=== PATIENT | female | born 1960 | race Caucasian/White ===

== ENCOUNTER 2016-08-21 14:20 | Emergency (ER) | payer MEDICARE, OTHER ==
[~2016-08-21 14:20] MED LIST: BACDS PO; CRESTOR40 MG PO; EFFEXOR100 MG PO; GLUCOPHAGE1000 MG PO; GLUCOTRO10 PO; IBU800 PO; KLONO1 PO; LANTUSCART SC; LEVOTHYROXIN137 MCG PO; NEUR300 PO; NEUR800 PO; PAXIL30 MG PO; PRAVACHOL40 MG PO; PRIN5 PO; REM15 PO; SEROQUEL50 MG PO; TRESIBA FL100 UNIT/1 SQ; ULTRAM50 PO; ZOL100 PO
[2016-08-21 14:32] LABS: BASOPHILS 0.2 %; BASOPHILS ABSOLUTE 0.01 10/3/uL (0.0-0.16); EOSINOPHILS 1.3 %; EOSINOPHILS ABSOLUTE 0.08 10/3/uL (0.0-0.53); ER CBC TAT 0 Hrs 07 Mins; HEMATOCRIT 36.4 % (36.0-48.0); HEMOGLOBIN 12.2 g/dL (12.0-16.0); LYMPHOCYTES 38.4 %; LYMPHOCYTES ABSOLUTE 2.28 10/3/uL (0.67-4.30); MANUAL DIFF NO %; MEAN CORPUS HGB CONC 33.5 g/dL (32.0-36.0); MEAN CORPUSCULAR HEMOGLOB 29.8 pg (26.0-34.0); MEAN PLATELET VOLUME 10.6 fL (9.2-13.0); MONOCYTES ABSOLUTE 0.65 10/3/uL (0.21-1.20); NEUTROPHILS 49.1 %; NEUTROPHILS ABSOLUTE 2.91 10/3/uL (2.02-8.40); PLATELET COUNT 142 10/3/uL (150-400); RBC DISTRIBUTION WIDTH 14.5 % (12.0-16.0); RED CELL COUNT 4.09 10/6/uL (4.0-5.6); WHITE BLOOD CELLS 5.9 10/3/uL (4.5-10.5)
[2016-08-21 14:46] LABS: A/G RATIO 0.7 (0.7-1.9); CHLORIDE, SERUM 101 MMOL/L (96-112); CO2 (CARBON DIOXIDE) 26 MMOL/L (24-34); GFR AFRICAN AMERICAN 97 ML/MIN (>=60); GFR NON AFRICAN AMERICAN 84 ML/MIN (>=60); GLOBULIN 4.4 G/DL (2.5-4.1); GLUCOSE, SERUM 304 MG/DL (60-99); SGOT(AST) 42 U/L (5-40); SGPT(ALT) 40 U/L (5-65); SODIUM, SERUM 139 MMOL/L (135-148); TOTAL PROTEIN 7.4 G/DL (6.0-8.5)
[2016-08-21 14:47] LABS: ALKALINE PHOSPHATASE 155 U/L (45-117); BUN (BLOOD UREA NITROGEN) 9 MG/DL (6-23); CALCIUM, SERUM 8.5 MG/DL (8.5-10.4); TOTAL BILIRUBIN 1.5 MG/DL (0-1.2)
[2016-08-21 14:58] LABS: POTASSIUM, SERUM 2.9 MMOL/L (3.5-5.3)
[2016-08-21 15:31] LABS: ASCORBIC ACID (UR NOT ORDER) NEG (NEG); BILIRUBIN, URINE NEGATIVE (NEG); ER URINALYSIS TAT 0 Hrs 07 Mins; KETONE, URINE NEGATIVE (NEG); LEUKOCYTE ESTERASE(NOT OR NEG (NEG); NITRITE (URINE) NEG (NEG); WBC (NOT ORDERED) (RFLEX) 1 (0-5)
[2016-08-21 15:34] LABS: ACETONE NEG
[2017-01-20] MEDS ORDERED: SYNTHROID300 MCG PO (10:50)
[2017-01-20] MEDS ORDERED: NOVOPEN SC (10:51)
[2017-01-20] MEDS ORDERED: [UNRECOGNIZED DRUG - OTHER] PO (10:54)
== END 2016-08-21 16:40 | disposition home or self-care (01) ==
LOC: ER 14:20
PROVIDERS: Physician Assistant
DX: L03.811 Cellulitis of head [any part, except face] (principal); E11.65 Type 2 diabetes mellitus with hyperglycemia; E11.649 Type 2 diabetes mellitus with hypoglycemia without coma; I10 Essential (primary) hypertension; Z86.73 Personal history of transient ischemic attack (TIA), and cerebral infarction without residual deficits; F41.9 Anxiety disorder, unspecified; F32.9 Major depressive disorder, single episode, unspecified; Z88.5 Allergy status to narcotic agent; Z79.899 Other long term (current) drug therapy; Z79.84 Long term (current) use of oral hypoglycemic drugs
CPT/HCPCS: 80053; 81001; 82009; 82962; 85025; 87040; 99285; A9270-GY

== ENCOUNTER 2017-01-21 10:13 | Day surgery (SDC) | payer MEDICARE ==
[~2017-01-21] VITALS: Ht 180.3 cm; Wt 106.6 kg
--- NOTE | ~2017-01-21 | EGD ---
EGD REPORT [facility] [address] [address] NAME: ANGELA CAMPBELL : [birth year] [place]US [place] [facility] [place] [id number] AGE: 56 ADM/REG DATE : 01/21/17 MR#: [id number] REPORT SERV DATE: 01/21/17 DICTATED BY: ELVIS ROWLAND DATE: 01/21/17 REPORT STATUS : Draft [facility]: [facility] DATE: 01/21/17 Endoscopy Center Patient Name: Angela Campbell Date of : 1960 Attending MD: ELVIS ROWLAND MD Procedure Date No Time: 01/21/2017 Procedure: Upper GI endoscopy Indications: Dysphagia, Heartburn Medicines: Monitored Anesthesia Care Complications: No immediate complications. Procedure: Pre-Anesthesia Assessment: - ASA Grade Assessment: III - A patient with severe systemic disease. After obtaining informed consent, the endoscope was passed under direct vision. Throughout the procedure, the patient's blood pressure, pulse, and oxygen saturations were monitored continuously. The GIF [id number] was introduced through the mouth, and advanced to the second part of duodenum. The upper GI endoscopy was accomplished without difficulty. The patient tolerated the procedure well. Findings: No endoscopic abnormality was evident in the esophagus to explain the patient's complaint of dysphagia. It was decided, however, to proceed with dilation of the entire esophagus. A guidewire was placed and the scope was withdrawn. Dilation was performed with a Savary dilator with mild resistance at 45 Fr and mild resistance at 48 Fr. Localized mild erythema was found at the gastroesophageal junction. Biopsies were taken with a cold forceps for histology. The cardia and gastric fundus were normal on retroflexion. The duodenal bulb and 2nd part of the duodenum were normal. Localized moderate inflammation characterized by congestion (edema), erythema and shallow ulcerations was found in the gastric antrum. Biopsies were taken with a cold forceps for histology. Impression: - No endoscopic esophageal abnormality to explain patient's dysphagia. Esophagus dilated. Dilated. - Erythema at the gastroesophageal junction. Biopsied. - Normal duodenal bulb and 2nd part of the duodenum. - Gastritis. Biopsied. Recommendation: - Patient has a contact number available for emergencies. The signs and symptoms of potential delayed complications were discussed with the patient. Return to EGD REPORT [address] [address] NAME: ANGELA CAMPBELL : [birth year] STATUS : REG [facility]#: [id number] AGE: 56 ADM/REG DATE : 01/21/17 MR#: [id number] REPORT SERV DATE: 01/21/17 DICTATED BY: ELVIS ROWLAND DATE: 01/21/17 REPORT STATUS : Draft TRANSCRIBED BY: [employer] DATE: 01/21/17 normal activities tomorrow. Written discharge instructions were provided to the patient. - Regular diet. - Continue present medications. - Await pathology results. - Follow an antireflux regimen. - Use Prilosec (omeprazole) 40 mg PO daily. - Repeat the upper endoscopy in 2 months to check healing. - No aspirin, ibuprofen, naproxen, or other non-steroidal anti-inflammatory drugs. Procedure Code(s): --- Professional --- 91737, Esophagogastroduodenoscopy, flexible, transoral; with insertion of guide wire followed by passage of dilator(s) through esophagus over guide wire 20198, Esophagogastroduodenoscopy, flexible, transoral; with biopsy, single or multiple Diagnosis Code(s): --- Professional --- R13.10, Dysphagia, unspecified K22.9, Disease of esophagus, unspecified K29.70, Gastritis, unspecified, without bleeding R12, Heartburn CPT copyright 2013 [employer]. All rights reserved. The codes documented in this report are preliminary and upon pre coder review may be revised to meet current compliance requirements. ELVIS ROWLAND MD 01/21/2017 12:10 PM This report has been signed electronically. Number of Addenda: 0 Note Initiated On: 01/21/2017 11:47 AM Scope Withdrawal Time 0 hours 0 minutes 0 seconds [address] [address]
--- NOTE | ~2017-01-21 | EGD ---
EGD REPORT [facility] [address] [address] NAME: ANGELA CAMPBELL : [birth year] STATUS : REG [facility] [place] PAT#: [id number] AGE: 56 ADM/REG DATE : 01/21/17 MR#: [id number] REPORT SERV DATE: 01/21/17 DICTATED BY: ELVIS ROWLAND DATE: 01/21/17 REPORT STATUS : Draft [facility]ANSCRIBED BY: [facility] DATE: 01/21/17 Endoscopy Center Patient Name: Angela Campbell Date of : 1960 Attending MD: ELVIS ROWLAND MD Procedure Date No Time: 01/21/2017 Procedure: Colonoscopy Indications: High risk colon cancer surveillance: Personal history of colonic polyps Medicines: Monitored Anesthesia Care Complications: No immediate complications. Procedure: Pre-Anesthesia Assessment: - ASA Grade Assessment: III - A patient with severe systemic disease. After I obtained informed consent, the scope was passed under direct vision. Throughout the procedure, the patient's blood pressure, pulse, and oxygen saturations were monitored continuously. The CF [id number] was introduced through the anus and advanced to the terminal ileum, with identification of the appendiceal orifice and IC valve. The colonoscopy was performed without difficulty. The patient tolerated the procedure well. The quality of the bowel preparation was good. Findings: The digital rectal exam was normal. Pertinent negatives include no palpable rectal lesions. The terminal ileum appeared normal. Three sessile polyps were found in the ascending colon. The polyps were 3 to 5 mm in size. These polyps were removed with a cold biopsy forceps. Resection and retrieval were complete. A pedunculated polyp was found in the sigmoid colon. The polyp was 11 mm in size. The polyp was removed with a hot snare. Resection and retrieval were complete. A sessile polyp was found in the rectum. The polyp was 5 mm in size. The polyp was removed with a cold biopsy forceps. Resection and retrieval were complete. Hemorrhoids were found during retroflexion. Impression: - The examined portion of the ileum was normal. - Three 3 to 5 mm polyps in the ascending colon. Resected and retrieved. - One 11 mm polyp in the sigmoid colon. Resected and retrieved. - One 5 mm polyp in the rectum. Resected and retrieved. EGD REPORT [place] [id number] [facility] [place]. [address] NAME: ANGELA CAMPBELL : [birth year] STATUS : REG [facility] [place] PAT#: [id number] AGE: 56 ADM/REG DATE : 01/21/17 MR#: [id number] REPORT SERV DATE: 01/21/17 DICTATED BY: ELVIS ROWLAND DATE: 01/21/17 REPORT STATUS : Draft TRANSCRIBED BY: [facility] DATE: 01/21/17 - Hemorrhoids. Recommendation: - Patient has a contact number available for emergencies. The signs and symptoms of potential delayed complications were discussed with the patient. Return to normal activities tomorrow. Written discharge instructions were provided to the patient. - Regular diet. - Continue present medications. - Await pathology results. - Repeat colonoscopy in 3 years for surveillance based on pathology results. - Return to GI clinic PRN. Procedure Code(s): --- Professional --- 01494, Colonoscopy, flexible, proximal to splenic flexure; with removal of tumor(s), polyp(s), or other lesion(s) by snare technique 28945, 59, Colonoscopy, flexible, proximal to splenic flexure; with biopsy, single or multiple Diagnosis Code(s): --- Professional --- K64.9, Unspecified hemorrhoids K62.1, Rectal polyp D12.5, Benign neoplasm of sigmoid colon D12.2, Benign neoplasm of ascending colon Z86.010, Personal history of colonic polyps CPT copyright 2013 [employer]. All rights reserved. The codes documented in this report are preliminary and upon minibus driver review may be revised to meet current compliance requirements. ELVIS ROWLAND MD 01/21/2017 12:34 PM This report has been signed electronically. Number of Addenda: 0 Note Initiated On: 01/21/2017 11:49 AM Scope Withdrawal Time 0 hours 16 minutes 2 seconds [address] [address]
[~2017-01-21 10:13] MED LIST changes: +NOVOPEN SC; +SYNTHROID300 MCG PO; +[UNRECOGNIZED DRUG - OTHER] PO
== END 2017-01-21 23:59 | disposition home or self-care (01) ==
LOC: DMU 10:13
PROVIDERS: Internal Medicine Gastroenterology
PROC: 0DB48ZX Excision of Esophagogastric Junction, Via Natural or Artificial Opening Endoscopic, Diagnostic (ICD-10-PCS; 2017-01-21)
PROC: 0DB68ZX Excision of Stomach, Via Natural or Artificial Opening Endoscopic, Diagnostic (ICD-10-PCS; 2017-01-21)
PROC: 0DBK8ZX Excision of Ascending Colon, Via Natural or Artificial Opening Endoscopic, Diagnostic (ICD-10-PCS; principal; 2017-01-21 11:30)
PROC: 0DBP8ZX Excision of Rectum, Via Natural or Artificial Opening Endoscopic, Diagnostic (ICD-10-PCS; 2017-01-21 11:30)
PROC: 0DBN8ZX Excision of Sigmoid Colon, Via Natural or Artificial Opening Endoscopic, Diagnostic (ICD-10-PCS; 2017-01-21 11:30)
PROC: 0D758ZZ Dilation of Esophagus, Via Natural or Artificial Opening Endoscopic (ICD-10-PCS; 2017-01-21 11:30)
DX: Z12.11 Encounter for screening for malignant neoplasm of colon (principal); D12.2 Benign neoplasm of ascending colon; D12.5 Benign neoplasm of sigmoid colon; K62.1 Rectal polyp; K64.9 Unspecified hemorrhoids; K20.9 Esophagitis, unspecified; I10 Essential (primary) hypertension; E78.5 Hyperlipidemia, unspecified; E11.9 Type 2 diabetes mellitus without complications; F41.9 Anxiety disorder, unspecified; F32.9 Major depressive disorder, single episode, unspecified; Z90.710 Acquired absence of both cervix and uterus; Z86.010 Personal history of colon polyps; Z90.49 Acquired absence of other specified parts of digestive tract; Z88.5 Allergy status to narcotic agent; Z79.4 Long term (current) use of insulin; Z87.891 Personal history of nicotine dependence; Z79.899 Other long term (current) drug therapy; Z98.890 Other specified postprocedural states
CPT/HCPCS: 82962; 88305